=== PATIENT | male | born 2005 | race Two or more races ===

== ENCOUNTER 2025-01-22 20:10 | Emergency (ER) | payer BC ==
[2025-01-22] MEDS: Meclizine 25 MG Tab PO ONE (22:18)
[2025-01-22] MEDS: Acetaminophen 325 MG Tab PO ONE (23:35)
[2025-01-22] MEDS: diphenhydrAMINE 25 MG Cap PO ONE (23:35)
== END 2025-01-22 23:40 | disposition home or self-care (01) ==
LOC: MW.ED 20:10
DX: S06.0X0A Concussion without loss of consciousness, initial encounter (principal); R42 Dizziness and giddiness; Z79.899 Other long term (current) drug therapy; W22.8XXA Striking against or struck by other objects, initial encounter; Y93.71 Activity, boxing
CPT/HCPCS: 70450; 99284; A9270; 99282

== ENCOUNTER 2025-01-23 20:33 | Emergency (ER) | payer BC ==
[2025-01-23] MEDS ORDERED: Sodium Chloride 0.9% 20 ML SDV IV PRN (21:17)
[2025-01-23] MEDS: Meclizine 25 MG Tab PO ONE (21:35)
[2025-01-23] MEDS: Ondansetron 4 MG/2 ML SDV IVPUSH ONE (21:35)
[2025-01-23] MEDS: Sodium Chloride 0.9% 2.5 ML Syringe FLUSH PRN (21:35)
[2025-01-23] MEDS: Sodium Chloride 0.9% 1,000 ML IV ONE (21:35)
[2025-01-23] MEDS: Sodium Chloride 0.9% 10 ML Syringe FLUSH PRN (21:35)
[2025-01-23 21:37] LABS: BASOPHILS ABSOLUTE AUTO 0.04 K/uL (0.00-0.30); BASOPHILS PERCENT AUTO 0.4 % (0.0-1.0); EOSINOPHILS ABSOLUTE AUTO 0.02 K/uL (0.00-0.70); EOSINOPHILS PERCENT AUTO 0.2 % (0.0-5.0); HEMATOCRIT 44.2 % (42.0-52.0); HEMOGLOBIN 15.3 g/dL (14.0-18.0); IMMATURE GRAN ABSOLUTE AUTO 0.03 K/uL (0.00-0.05); IMMATURE GRAN PERCENT AUTO 0.3 % (0.0-0.4); LYMPHOCYTES ABSOLUTE AUTO 1.28 K/uL (2.00-8.80); LYMPHOCYTES PERCENT AUTO 12.4 % (50.0-65.0); MEAN CORPUSCULAR HEMOGLOBIN 31.1 pg (28.0-32.0); MEAN CORPUSCULAR HGB CONC 34.6 g/dL (32.0-36.0); MEAN CORPUSCULAR VOLUME 89.8 fL (83.0-99.0); MEAN PLATELET VOLUME 9.5 fL (9.4-12.4); MONOCYTES ABSOLUTE AUTO 0.46 K/uL (0.10-1.40); MONOCYTES PERCENT AUTO 4.4 % (2.0-10.0); NEUTROPHILS ABSOLUTE AUTO 8.53 K/uL (1.50-8.50); NEUTROPHILS PERCENT AUTO 82.3 % (35.0-45.0); PLATELET COUNT,PLT 226 K/uL (150-400); RED BLOOD CELL COUNT 4.92 M/uL (4.52-5.90); WHITE BLOOD CELL COUNT,WBC 10.36 K/uL (4.5-13.5)
[2025-01-23 21:38] LABS: APPEARANCE,URINE CLEAR; COLOR,URINE YELLOW; GLUCOSE,URINE NEGATIVE (NEGATIVE); KETONES,URINE >=80 mg/dL (NEGATIVE); LEUKOCYTE ESTERASE,URINE NEGATIVE (NEGATIVE); NITRITE,URINE NEGATIVE (NEGATIVE); OCCULT BLOOD,URINE TRACE-INTACT (NEGATIVE); PROTEIN,URINE NEGATIVE (NEGATIVE)
[2025-01-23 21:45] LABS: BACTERIA,URINE FEW (NEGATIVE); BILIRUBIN,URINE SMALL (NEGATIVE); EPITHELIAL CELLS,URINE FEW (NONE-FEW); RBC,URINE 0-2 (0-2/HPF)
[2025-01-23 21:46] LABS: AMPHETAMINES SCREEN, URINE NEGATIVE (CUTOFF=500); BARBITURATE SCREEN,URINE NEGATIVE (CUTOFF=200); BENZODIAZEPINES SCREEN,URINE NEGATIVE (CUTOFF=150); BUPRENORPHINE SCREEN,URINE NEGATIVE (CUTOFF=10); METHADONE SCREEN, URINE NEGATIVE (CUTOFF=200); METHAMPHETAMINES SCREEN, URINE NEGATIVE (CUTOFF=500); OXYCODONE SCREEN,URINE NEGATIVE (CUT0FF=100); PCP SCREEN,URINE NEGATIVE (CUTOFF=25); THC SCREEN,URINE 20 NG/ML NEGATIVE (CUTOFF=50)
[2025-01-23 22:04] LABS: A/G RATIO 1.2 (0.9-1.6); ALANINE AMINOTRANSFERASE,ALT 22 IU/L (14-63); ALBUMIN 4.2 g/dL (3.4-5.0); ALKALINE PHOSPHATASE 90 U/L (46-116); ASPARTATE AMNIOTRANSFERASE,AST 13 IU/L (15-37); BILIRUBIN TOTAL 0.7 mg/dL (0.2-1.0); BLOOD UREA NITROGEN,BUN 9 mg/dL (7.0-18.0); CALCIUM 8.8 mg/dL (8.5-10.1); CARBON DIOXIDE,CO2 27.7 mmol/L (21.0-32.0); CHLORIDE,CL 100 mmol/L (98-107); CREATININE 1.1 mg/dL (0.8-1.3); ESTIMATED GFR 99 mL/min (>60); GLUCOSE RANDOM 152 mg/dL (74-106); POTASSIUM,K 3.4 mmol/L (3.5-5.1); PROTEIN TOTAL,TP 7.6 g/dL (6.4-8.2); SODIUM,NA 138 mmol/L (136-148)
== END 2025-01-23 22:50 | disposition home or self-care (01) ==
LOC: MW.ED 20:33
DX: F07.81 Postconcussional syndrome (principal); R11.2 Nausea with vomiting, unspecified; R42 Dizziness and giddiness; F17.200 Nicotine dependence, unspecified, uncomplicated
CPT/HCPCS: 36415; 80053; 80305; 81001; 85025; 96361; 96374; 99284; A9270; J2405; J7030; 99283

== ENCOUNTER 2025-03-19 19:38 | Emergency (ER) | payer BC ==
[2025-03-19] MEDS ORDERED: Sodium Chloride 0.9% 10 ML Syringe FLUSH PRN (19:49)
[2025-03-19] MEDS ORDERED: Sodium Chloride 0.9% 2.5 ML Syringe FLUSH PRN (19:49)
[2025-03-19] MEDS: diphenhydrAMINE 50 MG/ML SDV IVPUSH ONE (20:04)
[2025-03-19] MEDS: Ketorolac 30 MG/ML SDV IVPUSH ONE (20:05)
== END 2025-03-19 20:43 | disposition home or self-care (01) ==
LOC: MW.ED 19:38
DX: G44.309 Post-traumatic headache, unspecified, not intractable (principal); F07.81 Postconcussional syndrome
CPT/HCPCS: 96361; 96374; 96375; 99284; J1200; J1885; J2765; J7030; 99282

== ENCOUNTER 2025-03-21 19:59 | Emergency (ER) | payer BC ==
[2025-03-21 20:23] LABS: BASOPHILS ABSOLUTE AUTO 0.08 K/uL (0.00-0.30); BASOPHILS PERCENT AUTO 0.9 % (0.0-1.0); EOSINOPHILS ABSOLUTE AUTO 0.18 K/uL (0.00-0.70); EOSINOPHILS PERCENT AUTO 2.0 % (0.0-5.0); IMMATURE GRAN ABSOLUTE AUTO 0.01 K/uL (0.00-0.05); IMMATURE GRAN PERCENT AUTO 0.1 % (0.0-0.4); LYMPHOCYTES ABSOLUTE AUTO 2.19 K/uL (2.00-8.80); LYMPHOCYTES PERCENT AUTO 24.0 % (50.0-65.0); MEAN PLATELET VOLUME 9.2 fL (9.4-12.4); MONOCYTES ABSOLUTE AUTO 0.71 K/uL (0.10-1.40); MONOCYTES PERCENT AUTO 7.8 % (2.0-10.0); NEUTROPHILS ABSOLUTE AUTO 5.97 K/uL (1.50-8.50); NEUTROPHILS PERCENT AUTO 65.2 % (35.0-45.0); NRBC ABSOLUTE 0.00 K/uL (0.00-0.03); NRBC PERCENT 0.0 /100WBC (0.0-0.2); PLATELET COUNT,PLT 253 K/uL (150-400); RED BLOOD CELL COUNT 4.74 M/uL (4.52-5.90); WHITE BLOOD CELL COUNT,WBC 9.14 K/uL (4.5-13.5)
[2025-03-21 20:56] LABS: A/G RATIO 1.3 (0.9-1.6); ALANINE AMINOTRANSFERASE,ALT 26 IU/L (14-63); ASPARTATE AMNIOTRANSFERASE,AST 16 IU/L (15-37); BILIRUBIN TOTAL 0.5 mg/dL (0.2-1.0); BLOOD UREA NITROGEN,BUN 8 mg/dL (7.0-18.0); CARBON DIOXIDE,CO2 25.9 mmol/L (21.0-32.0); CHLORIDE,CL 102 mmol/L (98-107); CREATININE 1.1 mg/dL (0.8-1.3); ESTIMATED GFR 99 mL/min (>60); GLUCOSE RANDOM 122 mg/dL (74-106); POTASSIUM,K 4.0 mmol/L (3.5-5.1); PRO B-TYPE NATRIUR PEPT,BNPPRO 26 pg/mL (0-125); PROTEIN TOTAL,TP 7.7 g/dL (6.4-8.2); SODIUM,NA 138 mmol/L (136-148)
[2025-03-21 20:58] LABS: INR 0.98 (0.86-1.11)
[2025-03-21] MEDS: Iopamidol 755 MG/ML 500 ML Multipack Bottle IVPUSH STA (21:08)
[2025-03-21] MEDS: Pantoprazole 40 MG in Sodium Chloride 0.9% 10 ML IVPUSH ONE (21:26)
[2025-03-21] MEDS: Ondansetron 4 MG/2 ML SDV IVPUSH ONE (21:26)
[2025-03-21 21:27] LABS: APPEARANCE,URINE CLEAR; GLUCOSE,URINE NEGATIVE (NEGATIVE); OCCULT BLOOD,URINE NEGATIVE (NEGATIVE)
[2025-03-21 21:37] LABS: AMPHETAMINES SCREEN, URINE NEGATIVE (CUTOFF=500); BUPRENORPHINE SCREEN,URINE NEGATIVE (CUTOFF=10); METHADONE SCREEN, URINE NEGATIVE (CUTOFF=200); METHAMPHETAMINES SCREEN, URINE NEGATIVE (CUTOFF=500); OXYCODONE SCREEN,URINE NEGATIVE (CUT0FF=100); PCP SCREEN,URINE NEGATIVE (CUTOFF=25); THC SCREEN,URINE 20 NG/ML NEGATIVE (CUTOFF=50)
[2025-03-22] MEDS: Ketorolac 30 MG/ML SDV IVPUSH ONE (01:06)
== END 2025-03-22 02:25 ==
LOC: MW.ED 19:59
DX: S06.5X0A Traumatic subdural hemorrhage without loss of consciousness, initial encounter (principal); Z75.3 Unavailability and inaccessibility of health-care facilities; W01.198A Fall on same level from slipping, tripping and stumbling with subsequent striking against other object, initial encounter
CPT/HCPCS: 36415; 70450; 70496; 70498; 71045; 80053; 80305; 80307; 81003; 83690; 83735; 83880; 84484; 85025; 85610; 93005; 96360; 96361; 99285; A9270; J7030; Q9967; 93010